=== PATIENT | male | born 1995 | race Caucasian/White ===

== ENCOUNTER 2019-01-09 14:46 | Outpatient (CLI) | payer OTHER, SELFPAY ==
[2019-01-09 14:59] VITALS: BMI 21.7
== END 2019-01-09 15:13 | disposition home or self-care (01) ==
LOC: UTC.OUT 14:50
PROVIDERS: Visit Provider Nurse Practitioner Family
DX: Z23 Encounter for immunization (principal)
CPT/HCPCS: 90471; 90715

== ENCOUNTER 2020-05-31 10:35 | Emergency (ER) | payer OTHER, SELFPAY ==
[2020-05-31 11:35] VITALS: BP 145/89; PULSE 87; RESP 17; TEMP 36.9; O2SAT 99; BMI 23.6
[2020-05-31 11:42] VITALS: BP 145/89; PULSE 87; RESP 17; TEMP 36.9; O2SAT 99
--- NOTE | 2020-05-31 11:45 | [facility].EDUTC ---
[facility] [place] Clinical Impression: Encounter for laboratory testing for COVID-19 virus Disposition: Home, Self-Care Condition on Discharge: Good Instructions: Preventing the Spread of Coronavirus Discharge Instructions Additional Instructions: *Monitor Temp, Over the counter Motrin or Tylenol as directed/as needed Tylenol every 4 hours and Motrin every 6 hours (as long as your family doctor has told you that you can take it) for fever or pain. and straight to ER if unable to lower temp less than 101.0 after medication given *Warm salt water gargles may help to soothe the throat *Throat Lozenges *Warm fluids like tea with honey may help to soothe the throat *Sleep elevated *Humidifier/Vaporizer Follow up IMMEDIATELY for new or worsening symptoms or no Noticeable improvement over the next 48-72 hours. 911 for difficulty breathing or swallowing You were tested for today for COVID19 your test result should be back in the next 24-48 hours, you may call to the [facility] to see if your test results are back in the next 48 hours [phone] [facility] hours are 9am-9pm You was given a handout with instructions for Self Quarantine and Self isolation for while you wait on test results and what to do if they are positive If you are positive the Health Dept will be contacting you also Referrals: PCP,No [Primary Care Provider] - As needed Forms: Work/School Release Time of Disposition: 11:47 Medical Decision Making - [place] Inquiry Pt receiving controlled substance: No [place] was queried for this patient: No Vital Signs: 05/31/20 11:35 05/31/20 11:42 Temperature 98.5 F 98.5 F Temperature Source Oral Pulse Rate 87 Pulse Rate [Left] 87 Respiratory Rate 17 17 Blood Pressure 145/89 H Blood Pressure [Right Arm] 145/89 H Blood Pressure Mean [Right Arm] 107 Blood Pressure Source [Right Arm] Automatic Cuff Blood Pressure Position [Right Arm] Sitting 02 Sat by Pulse Oximetry 99 Oxygen Delivery Method Room Air Orders (Tests/Meds): ORDERS Category Date Time Status Covid-19 Nasal PCR Sendout [facility] 05/31/20 10:45 Received [facility] [place] HPI - General Stated complaint: Covid test Time Seen by Provider: 05/31/20 11:45 Mode of Arrival: Ambulatory Source of Information: Patient Limitations: No Limitations Description of Symptoms (Recalled from Triage Doc. by RN): Covid testing symptomatic HEENT Symptoms (Recalled from RN notes): Yes Resp Symptoms (Recalled from RN notes): Yes Skin Symptoms (Recalled from RN notes): No MS Symptoms (Recalled from RN notes): No Functional Status (Recalled from RN notes): wnl - History of Present Illness Provider Complaint: Patient state that he has having cold like symtpoms State that he was having sore throat, body aches, chills and over all didnt feel well yesterday State that he was feeling a little better today but has a at home and wants to get checked - Related Data Allergies Allergy/AdvReac Type Severity Reaction Status Date / Time No Known Allergies Allergy Verified 01/09/19 14:59 - Worker's Comp Is this a Worker's Comp case?: No Is this an [facility] Worker's Comp?: No Is this a [facility] Worker's Comp?: No [facility] History - Hepatitis A Screen Drug use history?: No High risk sexual behaviors?: No History of sexually transmitted infection?: No Currently employed?: No Childcare worker?: No Do you have indoor plumbing?: Yes Do you have electricity?: Yes Attestation statement:: This patient has been screened for Hepatitis A risk factors. I have reviewed the patient's past medical history: Yes ROS Obtained: Yes All systems reviewed & no additional complaints, Yes Systems reviewed as appropriate & no additional complaints - Constitutional Constitutional: Reports system reviewed and no additional complaints, except as docu, Reports body ache, Reports chills, Reports headache(s) - ENT Ears, Nose, Mouth, and Throat: Reports system reviewed and no additional c
--- NOTE | 2020-06-01 12:41 | PC.NURSE ---
Patient notified of positive covid results. educated on quarantine.
[2020-06-01 12:43] LABS: Covid-19 Nasal PCR Sendout Lex Positive
== END 2020-05-31 11:57 | disposition home or self-care (01) ==
PROVIDERS: Emergency Provider Nurse Practitioner
DX: U07.1 COVID-19 (principal)
CPT/HCPCS: 99201; U0004

== ENCOUNTER → 2021-02-03 13:55 | Outpatient (CLI) | payer OTHER, SELFPAY ==
[2021-02-03 14:50] LABS: Adenovirus,PCR Not Detected (NotDetected); Bordetella Pertussis Not Detected (NotDetected); Chlamydophila Pneumoniae, PCR Not Detected (NotDetected); Coronavirus 19, PCR Not Detected (NotDetected); Coronavirus 229E Not Detected (NotDetected); Coronavirus NL63 Not Detected (NotDetected); Coronavirus OC43 Not Detected (NotDetected); Coronovirus HKU1,PCR Not Detected (NotDetected); Human Metapneumovirus Not Detected (NotDetected); Influenza A, PCR Not Detected (NotDetected); Influenza AH1, 2009 Not Detected (NotDetected); Influenza AH1, PCR Not Detected (NotDetected); Influenza AH3,PCR Not Detected (NotDetected); Influenza B, PCR Not Detected (NotDetected); Mycoplasma Pneumoniae, PCR Not Detected (NotDetected); Parainfluenza 1, PCR Not Detected (NotDetected); Parainfluenza 2, PCR Not Detected (NotDetected); Parainfluenza 3, PCR Not Detected (NotDetected); Parainfluenza 4, PCR Not Detected (NotDetected); Respiratory Syncytial Virus Not Detected (NotDetected)
[2021-02-03 16:10] LABS: Rhinovirus/Enterovirus Detected (NotDetected)
== END ==
PROVIDERS: Visit Provider Nurse Practitioner
DX: Z20.822 Contact with and (suspected) exposure to COVID-19 (principal); B34.1 Enterovirus infection, unspecified
CPT/HCPCS: 87581; 87633; 87798